=== PATIENT | male | born 1950 | race Hispanic/Latino ===

== ENCOUNTER 2023-02-11 10:02 | Outpatient (CLI) | payer MEDICARE | END 2023-02-11 10:03 | disposition home or self-care (01) | LOC: CSHRAD 10:02 | PROVIDERS: ATTEND Otolaryngology Plastic Surgery within the Head & Neck | DX: R13.12 Dysphagia, oropharyngeal phase (principal); R63.30 Feeding difficulties, unspecified; K21.9 Gastro-esophageal reflux disease without esophagitis | CPT/HCPCS: 74230 ==

== ENCOUNTER 2025-09-06 07:17 | Outpatient (CLI) | payer MEDICARE ==
[2025-09-06] MEDS ORDERED: Iopamidol 300 61% 100 ML VIAL FS ONE (12:36)
== END 2025-09-06 07:18 | disposition home or self-care (01) ==
LOC: CSHCT 07:17
PROVIDERS: ATTEND Internal Medicine Hematology & Oncology
DX: C83.33 Diffuse large B-cell lymphoma, intra-abdominal lymph nodes (principal); R59.0 Localized enlarged lymph nodes; D50.0 Iron deficiency anemia secondary to blood loss (chronic); R93.5 Abnormal findings on diagnostic imaging of other abdominal regions, including retroperitoneum; I25.10 Atherosclerotic heart disease of native coronary artery without angina pectoris; I51.7 Cardiomegaly; I77.89 Other specified disorders of arteries and arterioles; N40.0 Benign prostatic hyperplasia without lower urinary tract symptoms; K57.30 Diverticulosis of large intestine without perforation or abscess without bleeding
CPT/HCPCS: 71260; 74177